=== PATIENT | female | born 1995 | race Asian ===

== ENCOUNTER 2018-04-05 11:21 | Emergency (ER) | payer BC ==
--- NOTE | 2018-04-05 11:39 | PDOC ---
History of Present Illness - General Chief Complaint: Vaginal Bleeding Stated Complaint: VAGINAL BLEEDING NAUSEA Time Seen by Provider: 04/05/18 11:38 - History of Present Illness Initial Comments: 04/05/18 13:44 Chief complaint: Menstrual cramps History of present illness: Patient frequently suffers from severe menstrual cramps, started her menses this morning and cramps were severe, mild nausea which caused her to vomit up her Motrin. Review of systems: Denies fever/chills, URI symptoms, sore throat, cough, chest pain, shortness of breath, abdominal pain, vomiting or diarrhea, vaginal discharge, urinary tract symptoms. Past medical history: Menses are regular, monogamous with same sexual partner, partner asymptomatic Social/family history reviewed and noncontributory Physical exam: Alert and oriented 3, well-developed well-nourished, no acute distress cheerful and cooperative. The cramps and nausea have subsided Afebrile, vital signs normal No pallor or icterus. HEENT clear Neck supple without bruit mass or nodes Chest clear CV regular without murmur rub or gallop Abdomen nondistended. Bowel sounds normal. Soft without mass tenderness organomegaly. No CVAT Skin clear, no rash, adequate turgor and wet mucous membranes Neurological intact Impression: Dysmenorrhea Plan: Patient was treated with sublingual Zofran, then was able to hold down a dose of Motrin. Her cramps had substantially subsided and there was no further nausea or vomiting, discharged fully ambulatory in no distress to follow-up as directed Past History - Past Medical History Allergies/Adverse Reactions: Allergies Allergy/AdvReac Type Severity Reaction Status Date / Time No Known Allergies Allergy Verified 04/05/18 11:22 Home Medications: Ambulatory Orders Albuterol Sulfate Inhaler - [Ventolin Hfa Inhaler -] 1 - 2 inh PO PRN PRN *DC/Admit/Observation/Transfer Diagnosis at time of Disposition: Severe menstrual cramps - Discharge Dispostion Disposition: HOME Condition at time of disposition: Improved Decision to Admit order: No - Referrals - Patient Instructions Printed Discharge Instructions: DI for Dysmenorrhea Additional Instructions: Take ibuprofen 600-800 mg 3 times daily as needed Return to ER or see EDUCATIONAL ASSISTANT specialist if symptoms worsen. - Post Discharge Activity Forms/Work/School Notes: Back to School
[2018-04-05 11:57] VITALS: TEMP 97.6; BMI 26.4
[2018-04-05] MEDS ORDERED: ONDANSETRON *ODT* 4 MG TABLET SL ONE (12:30)
[2018-04-05 12:36] VITALS: BP 100/65; PULSE 80
[2018-04-05] MEDS ORDERED: ONDANSETRON *ODT* 4 MG TABLET ONE (12:42)
[2018-04-05] MEDS ORDERED: IBUPROFEN 600 MG TABLET (FP) PO ONE ×2 (13:09→13:11)
== END 2018-04-05 13:32 | disposition home or self-care (01) ==
LOC: FER 11:21
DX: N94.6 Dysmenorrhea, unspecified (principal)
CPT/HCPCS: 84703; 99282-25; Q0162